=== PATIENT | female | born 1955 | race Caucasian/White ===

== ENCOUNTER 2019-11-20 18:09 | Emergency (ER) | payer OTHER ==
[~2019-11-20] VITALS: Ht 152.4 cm; Wt 95.3 kg
[2019-11-20] MEDS ORDERED: CARVEDILOL25 MG PO (18:34)
[2019-11-20] MEDS ORDERED: METFORMIN HCL500 M3 PO (18:34)
[2019-11-20] MEDS ORDERED: NORVASC 2.5 MG2.5 M1 PO (18:34)
[2019-11-20] MEDS ORDERED: BLOOD PRESSURE (18:34)
[2019-11-20] MEDS ORDERED: KEFLEX500 M1 PO (18:49)
[2019-11-20 19:10] VITALS: BP 203/80
== END 2019-11-20 19:11 | disposition home or self-care (01) ==
LOC: M.ERS 18:09
DX: S91.112A Laceration without foreign body of left great toe without damage to nail, initial encounter (principal); I10 Essential (primary) hypertension; E78.5 Hyperlipidemia, unspecified; M79.7 Fibromyalgia; M19.90 Unspecified osteoarthritis, unspecified site; Z88.1 Allergy status to other antibiotic agents; W22.8XXA Striking against or struck by other objects, initial encounter; Y93.89 Activity, other specified; Y92.89 Other specified places as the place of occurrence of the external cause; Y99.8 Other external cause status

== ENCOUNTER 2019-12-07 11:28 | Emergency (ER) | payer OTHER ==
[~2019-12-07] VITALS: Ht 152.4 cm; Wt 95.3 kg
[~2019-12-07 11:28] MED LIST: BLOOD PRESSURE; CARVEDILOL25 MG PO; KEFLEX500 M1 PO; METFORMIN HCL500 M3 PO; NORVASC 2.5 MG2.5 M1 PO
[2019-12-07] MEDS ORDERED: ZYRTEC10 M4 PO (12:46)
[2019-12-07] MEDS ORDERED: BENADRYL25 MG PO (12:46)
[2019-12-07 12:57] VITALS: BP 163/96
== END 2019-12-07 12:57 | disposition home or self-care (01) ==
LOC: M.ERS 11:28
DX: T36.3X5A Adverse effect of macrolides, initial encounter (principal); I10 Essential (primary) hypertension; E78.5 Hyperlipidemia, unspecified; M79.7 Fibromyalgia; M19.90 Unspecified osteoarthritis, unspecified site; Z88.1 Allergy status to other antibiotic agents; Y92.89 Other specified places as the place of occurrence of the external cause

== ENCOUNTER 2019-12-09 06:39 | Emergency (ER) | payer OTHER ==
[~2019-12-09] VITALS: Ht 152.4 cm; Wt 99.8 kg
[~2019-12-09 06:39] MED LIST changes: +BENADRYL25 MG PO; +ZYRTEC10 M4 PO
[2019-12-09 07:12] LABS: ABSOLUTE BASOPHILS 0.1 thou/uL (0.0-0.2); ABSOLUTE MONOCYTES 0.4 thou/uL (0.0-1.2); ABSOLUTE NEUTROPHILS 7.1 thou/uL (1.6-8.1); BASOPHILS 1.3 %; EOSINOPHILS 0.4 %; HEMATOCRIT 43.4 % (37.0-47.0); HEMOGLOBIN 15.1 gm/dL (12.0-15.0); LYMPHOCYTES 27.9 %; MCH 29.6 pg (26.0-34.0); MCHC 34.8 g/dL (28.0-37.0); MPV 8.3 fl. (7.2-11.1); NUCLEATED RBCS 0 /100WBC; PLATELET COUNT* 223 thou/uL (150-400); POLYS 66.4 %; RDW-CV 14.5 % (10.5-14.5); WBC 10.6 thou/uL (4.0-11.0)
[2019-12-09] MEDS ORDERED: PEPCID20 MG PO (07:29)
[2019-12-09] MEDS ORDERED: ZYRTEC 10 MG TA10 MG PO (07:29)
[2019-12-09] MEDS ORDERED: PREDNISONE 20 M20 M1 PO (07:29)
[2019-12-09 07:36] LABS: CALCIUM 8.2 mg/dL (8.5-10.1); CREATININE 0.7 mg/dL (0.6-1.3); POTASSIUM 3.3 mmol/L (3.5-5.1)
[2019-12-09 07:41] LABS: ALBUMIN 3.6 g/dL (3.4-5.0); TOTAL BILIRUBIN 0.5 mg/dL (<0.1-1.0); TOTAL PROTEIN 6.8 g/dL (6.4-8.2)
[2019-12-09 07:52] VITALS: BP 174/77
== END 2019-12-09 07:52 | disposition home or self-care (01) ==
LOC: M.ERS 06:39
PROVIDERS: Emergency Medicine
DX: L50.9 Urticaria, unspecified (principal); I10 Essential (primary) hypertension; E78.5 Hyperlipidemia, unspecified; M79.7 Fibromyalgia; M19.90 Unspecified osteoarthritis, unspecified site; Z88.1 Allergy status to other antibiotic agents

== ENCOUNTER 2020-01-07 18:08 | Emergency (ER) | payer OTHER ==
[~2020-01-07] VITALS: Ht 152.4 cm; Wt 97.1 kg
[~2020-01-07 18:08] MED LIST changes: +PEPCID20 MG PO; +PREDNISONE 20 M20 M1 PO; +ZYRTEC 10 MG TA10 MG PO
[2020-01-07 18:21] LABS: URINE BILIRUBIN NEGATIVE (Negative); URINE BLOOD TRACE (Negative); URINE CLARITY CLEAR; URINE COLOR YELLOW; URINE GLUCOSE-RANDOM NEGATIVE (Negative); URINE KETONES NEGATIVE (Negative); URINE LEUKOCYTES-REFLEX NEGATIVE (Negative); URINE NITRITE-REFLEX NEGATIVE (Negative); URINE PROTEIN NEGATIVE (Negative); URINE UROBILINOGEN 0.2 E.U./dl (0.2-1.0)
[2020-01-07 18:31] LABS: ABSOLUTE BASOPHILS 0.1 thou/uL (0.0-0.2); ABSOLUTE EOSINOPHILS 0.3 thou/uL (0.0-0.7); ABSOLUTE LYMPHOCYTES 2.4 thou/uL (0.8-5.3); ABSOLUTE MONOCYTES 0.5 thou/uL (0.0-1.2); ABSOLUTE NEUTROPHILS 3.3 thou/uL (1.6-8.1); EOSINOPHILS 4.7 %; HEMATOCRIT 44.2 % (37.0-47.0); HEMOGLOBIN 15.4 gm/dL (12.0-15.0); LYMPHOCYTES 36.4 %; MCH 29.5 pg (26.0-34.0); MCHC 34.9 g/dL (28.0-37.0); MCV 84.5 fL (80.0-100.0); MONOCYTES 7.4 %; MPV 7.6 fl. (7.2-11.1); NUCLEATED RBCS 0 /100WBC; PLATELET COUNT* 237 thou/uL (150-400); POLYS 50.5 %; RBC 5.23 mil/uL (4.20-5.00); RDW-CV 14.1 % (10.5-14.5); WBC 6.6 thou/uL (4.0-11.0)
[2020-01-07 18:40] LABS: POTASSIUM 3.4 mmol/L (3.5-5.1)
[2020-01-07 18:44] LABS: ALBUMIN 3.8 g/dL (3.4-5.0); TOTAL BILIRUBIN 0.2 mg/dL (<0.1-1.0); TOTAL PROTEIN 7.5 g/dL (6.4-8.2)
[2020-01-07] MEDS ORDERED: NORCO 5-325 TA1 EAC2 PO (20:14)
[2020-01-07] MEDS ORDERED: IBUPROFEN 800800 M1 PO (20:14)
[2020-01-07 20:27] VITALS: BP 169/72
--- NOTE | 2020-01-08 10:43 | EKG ---
[place] [address] ELECTROCARDIOGRAM REPORT Name: CHEY DUMONT Room: [facility]#: [id number] Admission: 01/07/20 Attend Phys: Discharge: 01/07/20 Date of : 53 Date of Service: 01/07/201818 Report #: [id number] THIS REPORT FOR: //name// [facility] ED Test Date: 2020-01-07 Test Time: 18:19:35 Pat Name: CHEY DUMONT Department: Room: Gender: F Coat Check Attendant: : 1955 Requested By: Lawrence Morales Order Number: [id number] MD: Rylan Rothman Measurements Intervals [place] Rate: 99 P: 58 UT: 164 QRS: 8 QRSD: 88 T: 15 QT: 364 QTc: 468 Interpretive Statements Sinus rhythm Borderline T wave abnormalities Baseline wander in lead(s) I,III,aVR,aVL,V1 No previous ECG available for comparison Electronically Signed On 01-08-2020 10:43:18 CDT by Rylan Rothman [email or web address] <ELECTRONICALLY SIGNED> By: Rylan Rothman MD, [facility] 01/08/20 1043 1819 1819 Rylan Rothman MD, [facility] /EPI
== END 2020-01-07 20:28 | disposition home or self-care (01) ==
LOC: M.ERS 18:08
PROVIDERS: Family Medicine
DX: D17.71 Benign lipomatous neoplasm of kidney (principal); K42.9 Umbilical hernia without obstruction or gangrene; I10 Essential (primary) hypertension; E78.5 Hyperlipidemia, unspecified; M79.7 Fibromyalgia; M19.90 Unspecified osteoarthritis, unspecified site; Z90.710 Acquired absence of both cervix and uterus; Z91.013 Allergy to seafood; Z88.1 Allergy status to other antibiotic agents; Z88.8 Allergy status to other drugs, medicaments and biological substances

== ENCOUNTER 2020-10-15 10:18 | Emergency (ER) | payer MEDICARE, OTHER ==
[~2020-10-15] VITALS: Ht 152.4 cm; Wt 99.8 kg
[~2020-10-15 10:18] MED LIST changes: +IBUPROFEN 800800 M1 PO; +NORCO 5-325 TA1 EAC2 PO
[2020-10-15 12:17] LABS: ABSOLUTE BASOPHILS 0.1 thou/uL (0.0-0.2); ABSOLUTE EOSINOPHILS 0.3 thou/uL (0.0-0.7); ABSOLUTE LYMPHOCYTES 2.6 thou/uL (0.8-5.3); ABSOLUTE MONOCYTES 0.6 thou/uL (0.0-1.2); ABSOLUTE NEUTROPHILS 3.6 thou/uL (1.6-8.1); EOSINOPHILS 4.6 %; HEMATOCRIT 45.8 % (37.0-47.0); HEMOGLOBIN 16.2 gm/dL (12.0-15.0); LYMPHOCYTES 36.4 %; MCH 29.9 pg (26.0-34.0); MCHC 35.4 g/dL (28.0-37.0); MCV 84.2 fL (80.0-100.0); MPV 8.3 fl. (7.2-11.1); NUCLEATED RBCS 0 /100WBC; PLATELET COUNT* 206 thou/uL (150-400); RBC 5.43 mil/uL (4.20-5.00); RDW-CV 13.8 % (10.5-14.5); WBC 7.1 thou/uL (4.0-11.0)
[2020-10-15 12:26] LABS: CALCIUM 9.3 mg/dL (8.5-10.1); CREATININE 0.6 mg/dL (0.6-1.3); POTASSIUM 3.8 mmol/L (3.5-5.1)
[2020-10-15 12:31] LABS: ALBUMIN 4.1 g/dL (3.4-5.0); TOTAL BILIRUBIN 0.3 mg/dL (<0.1-1.0); TOTAL PROTEIN 7.7 g/dL (6.4-8.2)
[2020-10-15] MEDS ORDERED: NORCO5 PO ×2 (13:32→13:38)
[2020-10-15 13:44] VITALS: BP 180/106
== END 2020-10-15 13:47 | disposition home or self-care (01) ==
LOC: M.ERS 10:18
PROVIDERS: Physician Assistant
DX: M25.561 Pain in right knee (principal); M25.571 Pain in right ankle and joints of right foot; M79.661 Pain in right lower leg; E78.5 Hyperlipidemia, unspecified; I10 Essential (primary) hypertension; M19.90 Unspecified osteoarthritis, unspecified site; M79.7 Fibromyalgia; Z88.1 Allergy status to other antibiotic agents; Z91.041 Radiographic dye allergy status; Z91.013 Allergy to seafood; Z90.710 Acquired absence of both cervix and uterus

== ENCOUNTER 2021-02-05 16:34 | Inpatient (IN) | payer MEDICARE, OTHER ==
[~2021-02-05] VITALS: Ht 152.4 cm; Wt 97.1 kg
[~2021-02-05 16:34] MED LIST changes: +NORCO5 PO
[2021-02-05 17:05] VITALS: BP 211/101
[2021-02-05] MEDS ORDERED: LISINOPRIL20 MG PO (17:15)
[2021-02-05] MEDS ORDERED: LIPITOR 20 MG T20 M1 PO (17:15)
[2021-02-05] MEDS ORDERED: TOPROL XL25 MG PO (17:15)
[2021-02-05] MEDS ORDERED: DEPAKOTE ER250 MG PO (17:16)
[2021-02-05] MEDS ORDERED: AIMOVIG AU140 MG/1 M SUBQ (17:16)
[2021-02-05 17:33] LABS: ABSOLUTE BASOPHILS 0.1 thou/uL (0.0-0.2); ABSOLUTE EOSINOPHILS 0.2 thou/uL (0.0-0.7); ABSOLUTE LYMPHOCYTES 1.4 thou/uL (0.8-5.3); ABSOLUTE MONOCYTES 0.6 thou/uL (0.0-1.2); ABSOLUTE NEUTROPHILS 10.3 thou/uL (1.6-8.1); BASOPHILS 0.8 %; EOSINOPHILS 1.4 %; HEMOGLOBIN 16.2 gm/dL (12.0-15.0); LYMPHOCYTES 10.8 %; MCH 28.9 pg (26.0-34.0); MCHC 33.8 g/dL (28.0-37.0); MCV 85.3 fL (80.0-100.0); MONOCYTES 5.1 %; MPV 8.1 fl. (7.2-11.1); NUCLEATED RBCS 0 /100WBC; PLATELET COUNT* 220 thou/uL (150-400); POLYS 81.9 %; RBC 5.62 mil/uL (4.20-5.00); RDW-CV 13.8 % (10.5-14.5); WBC 12.6 thou/uL (4.0-11.0)
[2021-02-05 17:43] LABS: ANION GAP 7 mmol/L (7-16); BUN 17 mg/dL (7-18); CALCIUM 9.4 mg/dL (8.5-10.1); CHLORIDE 103 mmol/L (98-107); CO2 31 mmol/L (21-32); GLUCOSE 209 mg/dL (70-99); POTASSIUM 3.5 mmol/L (3.5-5.1); SODIUM 141 mmol/L (136-145)
[2021-02-05 17:48] LABS: ALKALINE PHOSPHATASE 114 U/L (46-116); SGOT 126 U/L (15-37); SGPT 119 U/L (30-65); TOTAL BILIRUBIN 0.5 mg/dL (<0.1-1.0); TOTAL PROTEIN 7.8 g/dL (6.4-8.2)
[2021-02-05 18:18] LABS: LIPASE > 30000 U/L (73-393)
[2021-02-05 18:37] LABS: URINE BILIRUBIN NEGATIVE (Negative); URINE BLOOD NEGATIVE (Negative); URINE CLARITY CLEAR; URINE COLOR YELLOW; URINE GLUCOSE-RANDOM TRACE (Negative); URINE KETONES NEGATIVE (Negative); URINE LEUKOCYTES-REFLEX NEGATIVE (Negative); URINE NITRITE-REFLEX NEGATIVE (Negative); URINE PROTEIN NEGATIVE (Negative); URINE UROBILINOGEN 0.2 E.U./dl (0.2-1.0)
[2021-02-05 23:00] VITALS: BP 200/97
[2021-02-06] VITALS (8 sets, daily range): BP systolic 133–240; BP diastolic 77–112
--- NOTE | 2021-02-06 10:03 | EKG ---
[place] [address] ELECTROCARDIOGRAM REPORT Name: CHEY DUMONT Room: [place] [address] ADM IN [facility].#: [id number] Admission: 02/05/21 Attend Phys: July [place], Discharge: Date of : 53 Date of Service: 02/05/21 1714 Report #: [id number] THIS REPORT FOR: //name// [facility] ED Test Date: 2021-02-05 Test Time: 17:14:53 Pat Name: CHEY DUMONT Department: Room: [facility] Gender: F Satellite Dish Technician: REGULO : 1955 Requested By: Sharifa Malik Order Number: [id number] MD: Trevon Bullock Measurements Intervals [place] Rate: 93 P: 66 MI: 180 QRS: 11 QRSD: 92 T: -29 QT: 361 QTc: 449 Interpretive Statements Sinus rhythm Probable left atrial enlargement Borderline T abnormalities, inferior leads Baseline wander in lead(s) II,III,aVF Compared to ECG 01/07/2020 18:19:35 No significant changes Electronically Signed On 02-06-2021 10:03:22 CDT by Trevon Bullock [email or web address] <ELECTRONICALLY SIGNED> By: Michael Bullock MD, FACC 02/06/21 1003 13 13 Michael Bullock MD, [place] /EPI
[2021-02-06 10:34] LABS: ABSOLUTE EOSINOPHILS 0.2 thou/uL (0.0-0.7); ABSOLUTE LYMPHOCYTES 1.7 thou/uL (0.8-5.3); ABSOLUTE MONOCYTES 0.6 thou/uL (0.0-1.2); ABSOLUTE NEUTROPHILS 6.2 thou/uL (1.6-8.1); BASOPHILS 0.4 %; EOSINOPHILS 2.1 %; HEMATOCRIT 45.3 % (37.0-47.0); HEMOGLOBIN 15.3 gm/dL (12.0-15.0); LYMPHOCYTES 19.3 %; MCH 28.7 pg (26.0-34.0); MCHC 33.8 g/dL (28.0-37.0); MCV 84.8 fL (80.0-100.0); MONOCYTES 6.7 %; MPV 8.1 fl. (7.2-11.1); NUCLEATED RBCS 0 /100WBC; PLATELET COUNT* 223 thou/uL (150-400); POLYS 71.5 %; RBC 5.34 mil/uL (4.20-5.00); RDW-CV 14.1 % (10.5-14.5); WBC 8.6 thou/uL (4.0-11.0)
[2021-02-06 10:51] LABS: ALBUMIN 3.7 g/dL (3.4-5.0); CREATININE 0.8 mg/dL (0.6-1.3); POTASSIUM 3.3 mmol/L (3.5-5.1); TOTAL BILIRUBIN 0.5 mg/dL (<0.1-1.0); TOTAL PROTEIN 7.3 g/dL (6.4-8.2)
[2021-02-07 05:02] LABS: HEMATOCRIT 45.1 % (37.0-47.0); HEMOGLOBIN 15.2 gm/dL (12.0-15.0); MCH 29.1 pg (26.0-34.0); MCHC 33.8 g/dL (28.0-37.0); MPV 8.6 fl. (7.2-11.1); NUCLEATED RBCS 0 /100WBC; PLATELET COUNT* 205 thou/uL (150-400); RBC 5.24 mil/uL (4.20-5.00); RDW-CV 14.3 % (10.5-14.5); WBC 9.8 thou/uL (4.0-11.0)
[2021-02-07 05:18] LABS: CALCIUM 9.1 mg/dL (8.5-10.1); CREATININE 0.9 mg/dL (0.6-1.3); POTASSIUM 3.7 mmol/L (3.5-5.1)
[2021-02-07 05:45] VITALS: BP 128/57
[2021-02-07 06:35] VITALS: BP 128/57
[2021-02-07 06:40] LABS: ABSOLUTE LYMPHOCYTES 0.9 thou/uL (0.8-5.3); ABSOLUTE MONOCYTES 0.2 thou/uL (0.0-1.2); ABSOLUTE NEUTROPHILS 8.7 thou/uL (1.6-8.1)
[2021-02-07 06:41] LABS: PLATELET ESTIMATE ADEQUATE
[2021-02-07 12:00] VITALS: BP 183/82
[2021-02-07 12:08] LABS: ALBUMIN 3.7 g/dL (3.4-5.0); DIRECT BILIRUBIN 0.1 mg/dL (<0.1-0.3); TOTAL BILIRUBIN 0.6 mg/dL (<0.1-1.0); TOTAL PROTEIN 7.8 g/dL (6.4-8.2)
--- NOTE | 2021-02-07 15:37 | NUR ---
CM ASSESSMENT: PT RESTING WITH EYES CLOSED. PT'S SPOUSE AT THE BEDSIDE AND WILLING TO ASSIST WITH CM ASSESSMENT. PT RESIDES AT HOME WITH SPOUSE. PT NORMALLY A&O, AND INDEPENDENT WITH ADL'S. PT USES CPAP AND WAKER AT HOME PRIOR TO ADMIT. PT HAS 0 HX OF HH OR SNF. CM WILL REMAIN AVAILABLE TO ASSIST AND FOLLOW NEEDED.
--- NOTE | 2021-02-07 16:19 | NUR ---
PTS , RAY, REACHABLE AT [phone]
[2021-02-07 16:27] VITALS: BP 190/86
[2021-02-07 22:28] VITALS: BP 144/75
[2021-02-08] VITALS (7 sets, daily range): BP systolic 113–183; BP diastolic 48–72
--- NOTE | 2021-02-08 05:02 | NUR ---
PT A&OX4, VSS ON 5L NC, IV SALINE LOCKED, PRN IV PAIN MEDS REQUESTED AND GIVEN ORDERED. PT CO ITCHING, PRN BENADRYL GIVEN ORDERED. PT SR-ST ON TELE MONITOR.
[2021-02-08 05:18] LABS: CALCIUM 9.4 mg/dL (8.5-10.1); POTASSIUM 3.6 mmol/L (3.5-5.1)
[2021-02-08 05:37] LABS: HEMATOCRIT 42.5 % (37.0-47.0); HEMOGLOBIN 14.1 gm/dL (12.0-15.0); MCHC 33.1 g/dL (28.0-37.0); MCV 87.7 fL (80.0-100.0); MPV 8.9 fl. (7.2-11.1); RBC 4.85 mil/uL (4.20-5.00); RDW-CV 14.5 % (10.5-14.5); WBC 13.2 thou/uL (4.0-11.0)
--- NOTE | 2021-02-08 11:09 | NUR ---
Nutrition: Pt admitted with acute pancreatitis 2/2 gallstones. Consult received for diabetes. Pt has h/o DM. Alb 3.7, BG 136-221, lipase 2041. Diet advanced from [facility]D this AM. She wears CPAP at home. Wt: 214#. She had a star and is now ok to discharge. She speaks Vietnamese. I spoke with her and her family about CHO sources, non-CHO sources, gave them handouts on CHO control diet. RD contact info provided as well. Mild risk.
--- NOTE | 2021-02-08 13:17 | NUR ---
ASSUMED PT CARE AT 0730. PT IS PLEASANTLY A&OX4. ASSESSMENT COMPLETED, PT WAS ADVANCED FROM CLD TO REGULAR DIET AT 1100. PT C/O PAIN IN ABDOMINAL AREA, PRN PAIN MEDICATION GIVEN AND EFFECTIVE. MEDICATIONS ADMINISTERED ORDERED. FOUR LAPAROSCOPY SITES ARE DRY AND INTACT WITH DEMABOND IN PLACE. NEW ORDER TO DISCHARGE PT TO HOME. PT TOLERATING MEALS WITHOUT DIFFICULTY. DISCHARGE INSTRUCTIONS REVIEWED WITH PT AND SPOUSE WHO VERBALIZE UNDERSTANDING, HEART MONITOR REMOVED AND IV DC'D. SPOUSE HERE TO TRANSPORT PT TO HOME VIA CAR AT 1330.
--- NOTE | 2021-02-08 13:54 | NUR ---
PLAN OF CARE: PHYSICIAN INFORMS OF PLAN TO D/C PT TODAY HOME WITH SELF-CARE. NO CM D/C PLANNIGN NEEDS ANTICIPATED. CM WILL REMAIN AVAILABLE TO ASSIST AND FOLLOW NEEDED.
--- NOTE | 2021-02-08 16:06 | PATH ---
[facility] [address] [place] [address] PATHOLOGY RPT PROCEDURE Name: CHEY DUMONT Room: [address] IN M.R.#: [id number] Admission: 02/05/21 Date of : 53 Discharge: 02/08/21 Report #: [id number] Path Case #: [id number] [facility] Accession Number: [id number] . 01 Material submitted: . gallbladder - GALLBLADDER . 01 Clinical history: . CHOLECYSTITIS, ACUTE PANCREATITIS . 02 Diagnosis: Gallbladder: - Chronic cholecystitis, cholesterolosis and cholelithiasis. (LEANDRA:sirena; 02/08/2021) S 02/08/2021 [facility] Local . 02 Electronically signed: . Jermaine Brock MD, Pathologist NPI- [id number] . 01 Gross description: . Fixative: Formalin Labeled: Gallbladder Specimen received: Intact gallbladder Dimensions: 7.1 x 3.8 x 2.4 cm Serosa: [place]-roberto to purple-herrera and roughened with a mild amount of adipose tissue Lymph node: None identified Mucosa: Velvety, bile-stained with a mild amount of yellow streaking Average wall thickness: Up to 0.6 cm Calculi: Present, displaying a bright yellow, nodular appearance Abnormalities: None identified . A1- Button Buttonhole Marker body, fundus, and the cystic duct margin. ([facility]; 02/07/2021) NRI/NRI 02/07/20212057 Local . 02 Pathologist provided ICD-10: K80.10, K82.4 . 02 CPT . 859827 Specimen Comment: A courtesy copy of this report has been sent to [phone] Specimen Comment: [phone], Specimen Comment: Report sent to , DR KO / DR ANDERSON Performed at: [address] [place] [address] PATHOLOGY RPT PROCEDURE Name: CHEY DUMONT Room: [address] IN [facility].#: [id number] Admission: 02/05/21 Date of : 53 Discharge: 02/08/21 Report #: [id number] Path Case #: [id number] [address] [facility] [address], [place] [id number] MD Bryson Blancas MD Phone: [phone] Performed at: 02 [facility] [address], [place], [place] [id number] MD Jermaine Brock MD Phone: [phone]
== END 2021-02-08 13:57 | disposition home or self-care (01) | DRG 417 ==
LOC: M.ERS 16:34 → M.2W 19:36 → M.TBA-ER 19:36 → M.2W 02-06 19:16
PROVIDERS: Family Medicine; Internal Medicine; Internal Medicine Gastroenterology; Physician Assistant; ADMIT Internal Medicine; ATTEND Internal Medicine
PROC: 0FT44ZZ Resection of Gallbladder, Percutaneous Endoscopic Approach (ICD-10-PCS; principal; 2021-02-07)
PROC: 5A09357 Assistance with Respiratory Ventilation, Less than 24 Consecutive Hours, Continuous Positive Airway Pressure (ICD-10-PCS; principal; 2021-02-07)
DX: K85.10 Biliary acute pancreatitis without necrosis or infection (principal); J96.01 Acute respiratory failure with hypoxia; R65.11 Systemic inflammatory response syndrome (SIRS) of non-infectious origin with acute organ dysfunction; Z68.41 Body mass index [BMI] 40.0-44.9, adult; K80.20 Calculus of gallbladder without cholecystitis without obstruction; E66.01 Morbid (severe) obesity due to excess calories; G43.909 Migraine, unspecified, not intractable, without status migrainosus; E11.9 Type 2 diabetes mellitus without complications; E78.5 Hyperlipidemia, unspecified; I10 Essential (primary) hypertension; G47.33 Obstructive sleep apnea (adult) (pediatric); K44.9 Diaphragmatic hernia without obstruction or gangrene; M79.7 Fibromyalgia; M19.90 Unspecified osteoarthritis, unspecified site; Z20.822 Contact with and (suspected) exposure to COVID-19; Z79.899 Other long term (current) drug therapy; Z88.8 Allergy status to other drugs, medicaments and biological substances; Z91.013 Allergy to seafood; Z90.710 Acquired absence of both cervix and uterus; Z88.1 Allergy status to other antibiotic agents; Z91.041 Radiographic dye allergy status